=== PATIENT | female | born 1980 | race Caucasian/White ===

== ENCOUNTER 2022-12-16 10:45 | Emergency (ER) | payer MEDICAID ==
[~2022-12-16] VITALS: Ht 160 cm; Wt 64.0 kg
[2022-12-16 10:58] VITALS: BP 117/85
[2022-12-16 11:00] VITALS: BP 124/90
[2022-12-16 11:26] LABS: BASO% 0.3 % (0-3); EOS% 0.1 % (0-8); HEMATOCRIT 46.9 % (37.0-47.0); HEMOGLOBIN 15.5 g/dl (12.0-16.0); IMMATURE GRANULOCYTES 0.3 % (0.0-5.0); LYMPH% 12.3 % (15-41); MEAN CELL VOLUME 82.4 fL CALC (80.0-100.0); MEAN CORPUSCULAR HGB 27.2 pG CALC (26.0-32.0); MONO% 6.9 % (2-13); NEUT# 12.8 thou/uL (2.00-7.15); NEUT% 80.1 % (42-76); RED BLOOD COUNT 5.69 mill/uL (4.20-5.60); RED CELL DISTRI WIDTH 12.4 % (11.5-15.5)
[2022-12-16 11:37] LABS: ALBUMIN 5.4 g/dL (3.2-5.0); ALKALINE PHOSPHATASE 105 u/l (38-126); AMYLASE 87 u/l (30-110); ANION GAP 24 (6-22 (CALC)); BILIRUBIN, TOTAL 0.8 mg/dL (0.02-1.3); BUN 11 mg/dL (7-17); BUN/CREATININE RATIO 10 (12-20 (CALC)); CARBON DIOXIDE 20 mmol/l (22-30); CHLORIDE 98 mmol/l (95-108); CREATININE 1.1 mg/dL (0.5-1.0); GFR FOR AFR.AMER. > 60 ML/MIN (>=60 (CALC)); GFR OTHER RACES 54 ML/MIN (>=60 (CALC)); LIPASE 234 u/l (23-300); POTASSIUM 3.4 mmol/l (3.5-5.1); SGOT/AST 44 u/l (14-36); SODIUM 138 mmol/l (137-146); TOTAL PROTEIN 9.4 g/dL (6.3-8.2)
[2022-12-16 12:00] VITALS: BP 101/69
[2022-12-16 12:08] LABS: URINE BLOOD DIPSTICK NEGATIVE (NEGATIVE); URINE COLOR YELLOW; URINE GLUCOSE - DIPSTICK NEGATIVE (NEGATIVE); URINE KETONE >=80 mg/dL (NEGATIVE); URINE LEUK ESTERASE NEGATIVE (NEGATIVE); URINE PROTEIN - DIPSTICK 100 mg/dL (NEG-TRACE); URINE SPECIFIC GRAVITY >=1.030; URINE UROBILINOGEN - DIPSTICK 0.2 E.U./dL (0.2)
[2022-12-16 12:08] LABS: TSH, 3RD GENERATION 0.54 uIU/mL (0.47 - 4.68)
[2022-12-16 12:10] LABS: URINE NITRITE - DIPSTICK NEGATIVE (Negative)
[2022-12-16 12:17] LABS: URINE BACTERIA RARE hpf; URINE MUCUS MODERATE hpf (NONE-FEW); URINE RBC 0-2 RBC/hpf (0-5); URINE SQUAMOUS EPITHELIAL CELL MODERATE EPI/hpf (0-FEW)
[2022-12-16 12:30] VITALS: BP 122/82
[2022-12-16 13:00] VITALS: BP 108/77
[2022-12-16] MEDS ORDERED: DIAZEPAM10 MG PO (13:39)
[2022-12-16] MEDS ORDERED: TORADOL PO (14:48)
[2022-12-16] MEDS ORDERED: TAMSULOSIN0.4 MG PO (14:48)
[2022-12-16] MEDS ORDERED: OMEPRAZOLE DR40 MG PO (14:48)
[2022-12-16 14:54] VITALS: BP 108/77
== END 2022-12-16 14:57 | disposition home or self-care (01) ==
LOC: ED 10:45
PROVIDERS: Family Medicine
DX: K29.70 Gastritis, unspecified, without bleeding (principal); N20.9 Urinary calculus, unspecified; E87.6 Hypokalemia; E86.0 Dehydration
CPT/HCPCS: S0164

== ENCOUNTER 2023-12-22 21:16 | Emergency (ER) | payer SELFPAY ==
[~2023-12-22] VITALS: Ht 160 cm; Wt 63.0 kg
[2023-12-22] VITALS (7 sets, daily range): BP systolic 112–148; BP diastolic 77–127
[~2023-12-22 21:16] MED LIST: DIAZEPAM10 MG PO; OMEPRAZOLE DR40 MG PO; TAMSULOSIN0.4 MG PO; TORADOL PO
[2023-12-22] MEDS ORDERED: SODIUM CHLORIDE 0.9% 1,000 ML IV STA (21:38)
[2023-12-22] MEDS ORDERED: PROMETHAZINE HCL 25 MG/ML AMP IV ONE (21:40)
[2023-12-22] MEDS ORDERED: ALUM & MAG HYDROX-SIMETHICONE 30 ML PO ONE (21:40)
[2023-12-22] MEDS ORDERED: LIDOCAINE VISCOUS 2% 15 ML UDC PO ONE (21:40)
[2023-12-22] MEDS ORDERED: KETOROLAC TROMETHAMINE 30 MG/ML SDV IV ONE (21:40)
[2023-12-22] MEDS ORDERED: Pantoprazole Sodium 40 MG VIAL (Protonix) IV ONE (21:45)
[2023-12-22 22:07] LABS: BASO% 0.3 % (0-3); EOS% 0.6 % (0-8); HEMATOCRIT 44.4 % (37.0-47.0); IMMATURE GRANULOCYTES 0.1 % (0.0-5.0); LYMPH% 18.7 % (15-41); MEAN CELL VOLUME 85.5 fL CALC (80.0-100.0); MEAN CORPUSCULAR HGB CONC 31.5 g/dL CAL (32.0-36.0); MONO% 6.7 % (2-13); NEUT# 7.42 thou/uL (2.00-7.15); NEUT% 73.6 % (42-76); RED BLOOD COUNT 5.19 mill/uL (4.20-5.60); RED CELL DISTRI WIDTH 13.8 % (11.5-15.5)
[2023-12-22 22:09] LABS: URINE BILIRUBIN - DIPSTICK Negative (NEGATIVE); URINE BLOOD DIPSTICK Negative (NEGATIVE); URINE GLUCOSE - DIPSTICK Negative (NEGATIVE); URINE KETONE Negative (NEGATIVE); URINE LEUK ESTERASE Negative (NEGATIVE); URINE NITRITE - DIPSTICK Negative (Negative); URINE PROTEIN - DIPSTICK Trace mg/dL (NEG-TRACE); URINE UROBILINOGEN - DIPSTICK 0.2 E.U./dL (0.2)
[2023-12-22 22:12] LABS: URINE COLOR Yellow
[2023-12-22 22:19] LABS: ALBUMIN 5.3 g/dL (3.2-5.0); BILIRUBIN, TOTAL 0.6 mg/dL (0.02-1.3); CREATININE 0.7 mg/dL (0.5-1.0)
[2023-12-22] MEDS ORDERED: OMEPRAZOLE20 MG PO (22:54)
[2023-12-22] MEDS ORDERED: diazePAM 10 MG/2 ML VIAL IV ONE (22:55)
== END 2023-12-22 23:10 | disposition home or self-care (01) | DRG 392 ==
LOC: ED 21:16
PROVIDERS: Family Medicine
DX: K29.70 Gastritis, unspecified, without bleeding (principal); F41.9 Anxiety disorder, unspecified; Z20.822 Contact with and (suspected) exposure to COVID-19
CPT/HCPCS: J2470